=== PATIENT | female | born 1970 | race Caucasian/White ===

== ENCOUNTER → 2018-07-03 14:22 | Outpatient (CLI) | payer MEDICAID, SELFPAY ==
--- NOTE | 2018-07-03 14:32 | XR_ITS ---
XR chest 2V HISTORY: ITS.REASON: COUGH ORDERING PHYSICIAN: Jenny Roper PATIENT AGE: 47 years COMPARISON: None FINDINGS: The cardiomediastinal silhouette and pulmonary vascularity are within normal limits. The lungs are clear without infiltrates, suspicious nodules, or pleural effusions. There is calcified granuloma in left midlung. Prominent endplate spurring is present on the left at T7-T8. No acute bony abnormalities. IMPRESSION: No change with no acute finding
== END ==
PROVIDERS: PCP Family Medicine; Visit Provider Nurse Practitioner Family
DX: R05 Cough (principal)
CPT/HCPCS: 71046

== ENCOUNTER → 2018-07-08 14:06 | Outpatient (CLI) | payer MEDICAID, SELFPAY ==
--- NOTE | 2018-07-08 14:10 | XR_ITS ---
EXAM: XR thoracic spine 3V HISTORY: Back pain ITS.REASON: THORACIC DDD Comparison: None FINDINGS: Minimal upper thoracic curvature convex right. Marginal osteophytes are present on the left at T7 and T8. There is degenerative disc disease in the midthoracic spine. No acute fracture or dislocation. No lytic or blastic change. IMPRESSION: Degenerative changes mid thoracic spine, no acute finding
== END ==
PROVIDERS: PCP Nurse Practitioner Family; Visit Provider Nurse Practitioner Family
DX: M51.34 Other intervertebral disc degeneration, thoracic region (principal)
CPT/HCPCS: 72072

== ENCOUNTER → 2018-09-01 12:45 | Outpatient (POV) | payer MEDICAID, SELFPAY ==
[2018-09-01 13:01] VITALS: BP 189/95; PULSE 80; RESP 18; O2SAT 98
--- NOTE | 2018-09-01 13:35 | HMH.PMCON ---
Assessment and Plan (1) Degenerative disk disease Current visit: Yes Status: Chronic Category: Medical (2) Cervical radiculopathy Current visit: No Status: Chronic Category: Medical Code(s): M54.12 - Radiculopathy, cervical region - Assessment and plan all Dx Assessment and Plan for all problems:: We will schedule C5-C6 epidural steroid injection with the patient. She is not on any anticoagulation B. I believe that it would be beneficial. She is continuing her home stretching program. I will follow-up with her after her injection. This note was dictated using voice recognition software and may contain errors or omissions HPI - Data of Consult Consult date: 09/01/18 Requesting Physician: Aggie Whalen APRN Primary Care Provider: Jenny Roper APRN - Consult Narrative Reason for consult: Neck pain History of present illness: Ms. Salmeron is a 47 year old female who presents today for consultation regards to her neck pain. Patient states that sleeping/mopping slept standing for long time increases her pain well resting and sitting upright in a chair decreases her pain. Patient's tried and physical therapy along with anti-inflammatories along with Flexeril and. Patient pain a 5 out of 10. Patient does have an MRI showing degenerative changes. Patient not considered a surgical candidate as time. Patient has not tried injective therapy. Patient has pain radiating into both of her arms and into her fingers. CC: Aggie Whalen APRN [facility] History I have reviewed the patient's past medical history: Yes Medical History: Reports:: Hyperlipidemia, Hypertension Other Surgeries: Yes: Thyroidectomy - *Social History Smoking Status: Current every day smoker Tobacco Type: cigarettes # Packs/Day (cigarettes): 1 Alcohol Intake: never Occupational Status: other Housing: house Household Members: other Travel in the last 8 weeks: None - Psychiatric History Expresses thoughts of harming self/others: None Suicide Plan Description: No Plan *Family Hx:: Unable to obtain Review of Systems - Review of Systems ROS General: no recent weight change, no fever, no sleep disturbances Respiratory: no cough, no shortness of air, no recurring pulmonary infections Cardiovascular/Peripheral Vascular: No chest pain, No palpitations, no edema, no shortness of breath. Gastrointestinal: no incontinence, normal bowel movements reported Genitourinary: no incontinence Musculoskeletal: Neck pain, back pain, arm pain Psychiatric: normal mood/ affect Neurological: [denies weakness in extremities], [denies balance issues] Meds Home Medications Medication Instructions Recorded Confirmed Type Lisinopril [Lisinopril 10mg Tab] 10 mg PO DAILY 12/01/17 12/01/17 History Levothyroxine Sodium 200 mcg PO DAILY 09/01/18 09/01/18 History [Levothyroxine 200mcg (0.2mg) Tab] Simvastatin 20 mg PO DAILY 09/01/18 09/01/18 History Trazodone HCl 50 mg PO DAILY 09/01/18 09/01/18 History buPROPion HCl [Wellbutrin Xl] 150 mg PO DAILY 09/01/18 09/01/18 History Allergies Allergy/AdvReac Type Severity Reaction Status Date / Time No Known Allergies Allergy Unverified 08/13/17 14:29 Objective Vital signs: Pulse Resp BP Pulse Ox 80 18 189/95 H 98 09/01/18 13:01 09/01/18 13:01 09/01/18 13:01 09/01/18 13:01 Narrative: Physical Exam General: Alert and oriented x3, no acute distress, pleasant and cooperative, [on room air] Lungs: Resps E/U, Symmetrical chest expansion, Eyes: PERRL Musculoskeletal: Flexion and extension of cervical spine somewhat guarded secondary to pain, deep tendon reflexes normal, strength in upper and lower extremities [5/5], normal gait noted Neurological: speech clear, bone crusher equal, no gross sensory deficits Opioid Risk Tool - Opioid Risk Tool-Female Family hx alcohol abuse: N Family hx illegal drugs: N Family hx rx drug abuse: N Personal hx alco
--- NOTE | 2018-09-01 13:38 | P.CONS_ITS ---
Assessment and Plan (1) Degenerative disk disease Current visit: Yes Status: Chronic Category: Medical (2) Cervical radiculopathy Current visit: No Status: Chronic Category: Medical Code(s): M54.12 - Radiculopathy, cervical region - Assessment and plan all Dx Assessment and Plan for all problems:: We will schedule C5-C6 epidural steroid injection with the patient. She is not on any anticoagulation B. I believe that it would be beneficial. She is continuing her home stretching program. I will follow-up with her after her injection. This note was dictated using voice recognition software and may contain errors or omissions HPI - Data of Consult Consult date: 09/01/18 Requesting Physician: Aggie Whalen APRN Primary Care Provider: Jenny Roper APRN - Consult Narrative Reason for consult: Neck pain History of present illness: Ms. Salmeron is a 47 year old female who presents today for consultation regards to her neck pain. Patient states that sleeping/mopping slept standing for long time increases her pain well resting and sitting upright in a chair decreases her pain. Patient's tried and physical therapy along with anti-inflammatories along with Flexeril and. Patient pain a 5 out of 10. Patient does have an MRI showing degenerative changes. Patient not considered a surgical candidate as time. Patient has not tried injective therapy. Patient has pain radiating into both of her arms and into her fingers. CC: Aggie Whalen APRN [facility] History I have reviewed the patient's past medical history: Yes Medical History: Reports:: Hyperlipidemia, Hypertension Other Surgeries: Yes: Thyroidectomy - *Social History Smoking Status: Current every day smoker Tobacco Type: cigarettes # Packs/Day (cigarettes): 1 Alcohol Intake: never Occupational Status: other Housing: house Household Members: other Travel in the last 8 weeks: None - Psychiatric History Expresses thoughts of harming self/others: None Suicide Plan Description: No Plan *Family Hx:: Unable to obtain Review of Systems - Review of Systems ROS General: no recent weight change, no fever, no sleep disturbances Respiratory: no cough, no shortness of air, no recurring pulmonary infections Cardiovascular/Peripheral Vascular: No chest pain, No palpitations, no edema, no shortness of breath. Gastrointestinal: no incontinence, normal bowel movements reported Genitourinary: no incontinence Musculoskeletal: Neck pain, back pain, arm pain Psychiatric: normal mood/ affect Neurological: [denies weakness in extremities], [denies balance issues] Meds Home Medications Medication Instructions Recorded Confirmed Type Lisinopril [Lisinopril 10mg Tab] 10 mg PO DAILY 12/01/17 12/01/17 History Levothyroxine Sodium 200 mcg PO DAILY 09/01/18 09/01/18 History [Levothyroxine 200mcg (0.2mg) Tab] Simvastatin 20 mg PO DAILY 09/01/18 09/01/18 History Trazodone HCl 50 mg PO DAILY 09/01/18 09/01/18 History buPROPion HCl [Wellbutrin Xl] 150 mg PO DAILY 09/01/18 09/01/18 History Allergies Allergy/AdvReac Type Severity Reaction Status Date / Time No Known Allergies Allergy Unverified 08/13/17 14:29 Objective Vital signs: Pulse Resp BP Pulse Ox 80 18 189/95 H 98
== END ==
PROVIDERS: PCP Nurse Practitioner Family; Visit Provider Clinical Nurse Specialist Family Health
DX: M54.12 Radiculopathy, cervical region (principal)
CPT/HCPCS: 99202

== ENCOUNTER → 2018-09-29 10:45 | Outpatient (POV) | payer MEDICAID, SELFPAY ==
[2018-09-29 11:19] VITALS: BP 187/98; PULSE 80; RESP 18; O2SAT 98; BMI 29.9
--- NOTE | 2018-09-29 12:30 | HMH.PAINSOAP ---
[facility] Pain Management SOAP Note Subjective:: Patient is a pleasant 47-year-old white female who presents today for follow-up after her first cervical epidural steroid injection. She states that it helped up to 80%. Patient would like to move forward with the continuation of the series of 3. She rates her pain today a 4 out of 10. ROS General: no recent weight change, no fever, no sleep disturbances Respiratory: no cough, no shortness of air, no recurring pulmonary infections Cardiovascular/Peripheral Vascular: No chest pain, No palpitations, no edema, no shortness of breath. Gastrointestinal: no incontinence, normal bowel movements reported Genitourinary: no incontinence Musculoskeletal: Neck pain, arm pain Psychiatric: normal mood/ affect Neurological: [denies weakness in extremities], [denies balance issues] Objective:: Physical Exam General: Alert and oriented x3, no acute distress, pleasant and cooperative, [on room air] Lungs: Resps E/U, Symmetrical chest expansion, Eyes: PERRL Musculoskeletal: Flexion and extension of cervical spine somewhat guarded secondary to pain, deep tendon reflexes normal, strength in upper and lower extremities [5/5], normal gait noted Neurological: speech clear, osteopathic resident equal, no gross sensory deficits Assessment:: Degenerative disc disease cervical spinal cervical radiculopathy symptoms Plan:: We will schedule her for C5-C6 cervical epidural given the efficacy of the last one. If were able to we will follow that one up by another one prior to seeing her back in the office. Continuing a home stretching program. She is on anti-inflammatory medication. She is not on any anticoagulation therapy. Dr. Sommers has reviewed this note and agrees with this plan of care. This note was dictated using voice recognition software and may contain errors or omissions
--- NOTE | 2018-09-29 12:33 | P.CONS_ITS ---
[facility] Pain Management SOAP Note Subjective:: Patient is a pleasant 47-year-old white female who presents today for follow-up after her first cervical epidural steroid injection. She states that it helped up to 80%. Patient would like to move forward with the continuation of the series of 3. She rates her pain today a 4 out of 10. ROS General: no recent weight change, no fever, no sleep disturbances Respiratory: no cough, no shortness of air, no recurring pulmonary infections Cardiovascular/Peripheral Vascular: No chest pain, No palpitations, no edema, no shortness of breath. Gastrointestinal: no incontinence, normal bowel movements reported Genitourinary: no incontinence Musculoskeletal: Neck pain, arm pain Psychiatric: normal mood/ affect Neurological: [denies weakness in extremities], [denies balance issues] Objective:: Physical Exam General: Alert and oriented x3, no acute distress, pleasant and cooperative, [on room air] Lungs: Resps E/U, Symmetrical chest expansion, Eyes: PERRL Musculoskeletal: Flexion and extension of cervical spine somewhat guarded secondary to pain, deep tendon reflexes normal, strength in upper and lower extremities [5/5], normal gait noted Neurological: speech clear, network engineering advisor equal, no gross sensory deficits Assessment:: Degenerative disc disease cervical spinal cervical radiculopathy symptoms Plan:: We will schedule her for C5-C6 cervical epidural given the efficacy of the last one. If were able to we will follow that one up by another one prior to seeing her back in the office. Continuing a home stretching program. She is on anti- inflammatory medication. She is not on any anticoagulation therapy. Dr. Sommers has reviewed this note and agrees with this plan of care. This note was dictated using voice recognition software and may contain errors or omissions
== END ==
PROVIDERS: PCP Nurse Practitioner Family; Visit Provider Clinical Nurse Specialist Family Health
DX: M50.10 Cervical disc disorder with radiculopathy, unspecified cervical region (principal)
CPT/HCPCS: 99213

== ENCOUNTER → 2018-11-18 09:35 | Outpatient (POV) | payer MEDICAID, SELFPAY ==
[2018-11-18 09:37] VITALS: BP 185/98; PULSE 82; RESP 18; O2SAT 98; BMI 31.6
--- NOTE | 2018-11-18 09:49 | HMH.PAINSOAP ---
[facility] Pain Management SOAP Note Subjective:: Patient is a pleasant 48-year-old white female who presents today for follow-up after her third cervical epidural steroid injection. Patient states that they did help however she feels like her pain has returned. Patient also having some left SI joint issues after walking. Patient and I had a long discussion about how we are going to move forward. Patient has not tried any gabapentin. We will start her on gabapentin 100 mg at bedtime and see if this is beneficial for her. I will see her back in 1 month and reassess her symptoms at that time. She rates her pain today a 5 out of 10. Mostly in her neck and low back. ROS General: no recent weight change, no fever, no sleep disturbances Respiratory: no cough, no shortness of air, no recurring pulmonary infections Cardiovascular/Peripheral Vascular: No chest pain, No palpitations, no edema, no shortness of breath. Gastrointestinal: no incontinence, normal bowel movements reported Genitourinary: no incontinence Musculoskeletal: Neck pain, back pain Psychiatric: normal mood/ affect, Neurological: [denies weakness in extremities], [denies balance issues] Objective:: Physical Exam General: Alert and oriented x3, no acute distress, pleasant and cooperative, [on room air] Lungs: Resps E/U, Symmetrical chest expansion, Eyes: PERRL Musculoskeletal: Flexion and extension of cervical and lumbar spine somewhat guarded secondary to pain, deep tendon reflexes normal, strength in upper and lower extremities [5/5], slightly antalgic gait noted Neurological: speech clear, shellfish shucker equal, no gross sensory deficits Assessment:: Degenerative disc disease cervical spinal cervical radiculopathy symptoms, left SI joint pain, low back pain Plan:: We will start the patient on gabapentin 100 mg 1 p.o. nightly we will see the patient back in 1 month and reassess her symptoms at that time. Patient's been instructed to call the office if she has any issues or side effects to the medication. Dr. Sommers has reviewed this note and agrees with this plan of care. This note was dictated using voice recognition software and may contain errors or omissions
== END ==
PROVIDERS: PCP Nurse Practitioner; Visit Provider Clinical Nurse Specialist Family Health
DX: M50.10 Cervical disc disorder with radiculopathy, unspecified cervical region (principal); M53.3 Sacrococcygeal disorders, not elsewhere classified; M54.5 Low back pain
CPT/HCPCS: 99213

== ENCOUNTER → 2018-12-22 10:52 | Outpatient (POV) | payer MEDICAID, SELFPAY ==
[2018-12-22 11:04] VITALS: BP 137/89; PULSE 78; RESP 18; O2SAT 98; BMI 30.9
--- NOTE | 2018-12-22 11:19 | P.CONS_ITS ---
[facility] Pain Management SOAP Note Subjective:: Patient is a pleasant 48-year-old white female who presents today for follow-up. Patient has been taking her gabapentin 100 mg at bedtime and she states that she is not having any side effects. We will increase this. Patient is trying to be more active she is continuing to walk she is finding it difficult to stand up straight and finds herself leaning forward to get relief. Patient and I discussed spinal stenosis and potential treatments. I gave her information in regards to this. She rates her pain a 3 out of 10. ROS General: no recent weight change, no fever, no sleep disturbances Respiratory: no cough, no shortness of air, no recurring pulmonary infections Cardiovascular/Peripheral Vascular: No chest pain, No palpitations, no edema, no shortness of breath. Gastrointestinal: no incontinence, normal bowel movements reported Genitourinary: no incontinence Musculoskeletal: Back pain, leg pain Psychiatric: normal mood/ affect Neurological: [denies weakness in extremities], [denies balance issues] Objective:: Physical Exam General: Alert and oriented x3, no acute distress, pleasant and cooperative, [on room air] Lungs: Resps E/U, Symmetrical chest expansion, Eyes: PERRL Musculoskeletal: Flexion and extension of lumbar spine somewhat guarded secondary to pain, deep tendon reflexes normal, strength in upper and lower extremities [5/5], slightly antalgic gait noted Neurological: speech clear, process development engineer equal, no gross sensory deficits Assessment:: 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 Degenerative disc disease cervical spine with cervical radiculopathy Plan:: We will increase the patient's gabapentin to 300 mg 1 p.o. 3 times daily. I will see her back in 1 month reassess her symptoms at that time. Also gave her information in regards to the spinal stenosis treatments we offer. Dr. Sommers has reviewed this note and agrees with this plan of care. This note was dictated using voice recognition software and may contain errors or omissions
== END ==
PROVIDERS: PCP Family Medicine; Visit Provider Clinical Nurse Specialist Family Health
DX: M48.062 Spinal stenosis, lumbar region with neurogenic claudication (principal); M50.10 Cervical disc disorder with radiculopathy, unspecified cervical region
CPT/HCPCS: 99212

== ENCOUNTER → 2019-01-23 15:47 | Outpatient (CLI) | payer MEDICAID, SELFPAY ==
[2019-01-23 16:53] LABS: Basophils # 0.1 K/mm3 (0-0.2); Basophils % 0.5 % (0.1-2.0); Eosinophils # 0.1 K/mm3 (0.0-0.4); Eosinophils % 1.2 % (0.1-12.0); Hematocrit 47.6 % (37.0-47.0); Hemoglobin 16.3 g/dL (12.2-16.2); Lymphocytes # 2.6 K/mm3 (0.7-4.5); Mean Corpuscular HGB Conc 34.2 g/dL (31.8-35.4); Mean Corpuscular Volume 96.3 fl (81-99); Mean Platelet Volume 7.2 fl (7.4-10.4); Monocytes # 0.5 K/mm3 (0.1-1.0); Monocytes % 5.1 % (1.7-9.3); Neutrophils % 68.2 % (37.0-80.0); Platelet Count 360 K/mm3 (142-424); Red Blood Count 4.94 M/mm3 (4.20-5.40); Red Cell Distribution Width 13.7 % (11.5-17.5); White Blood Count 10.3 K/mm3 (4.8-10.8)
[2019-01-23 17:43] LABS: Troponin I < 0.02 ng/ml (0.00-0.06)
[2019-01-23 17:49] LABS: Alanine Aminotransferase 43 U/L (12-78); Albumin/Globulin Ratio 1.1 (1.1-1.8); Alkaline Phosphatase 88 U/L (46-116); Anion Gap 12.9 mEq/L (5-15); Aspartate Amino Transferase 22 U/L (15-37); Bilirubin,Total 0.2 mg/dL (0.2-1.0); Blood Urea Nitrogen 23 mg/dL (7-18); Calcium 9.6 mg/dL (8.5-10.1); Carbon Dioxide 27 mmol/L (21.0-32.0); Chloride 102 mmol/L (98-107); Creatinine,Serum 0.79 mg/dL (0.55-1.02); Estimated Glomerular Filt Rate 77 ml/min (>60); GFR (African American) 94 ML/MIN (>60); Globulin 3.6 gm/dl (1.3-3.2); Glucose 86 mg/dL (74-106); Potassium 3.9 mmoL/L (3.5-5.1); Sodium 138 mmol/L (136-145); Thyroid Stimulating Hormone 0.36 uIU/ml (0.358-3.740); Total Protein,Serum 7.6 gm/dL (6.4-8.2)
[2019-01-23 17:50] LABS: C-Reactive Protein < 0.2 mg/L (0.0-0.9)
[2019-01-25 17:08] LABS: Myoglobin 51 ng/mL (25-58)
== END ==
PROVIDERS: Visit Provider Nurse Practitioner Family
DX: I10 Essential (primary) hypertension (principal); R00.0 Tachycardia, unspecified; R06.02 Shortness of breath
CPT/HCPCS: 36415; 80053; 83874; 84443; 84484; 85025; 86140

== ENCOUNTER → 2019-02-02 15:33 | Outpatient (POV) | payer MEDICAID, SELFPAY ==
[2019-02-02 16:06] VITALS: BP 188/83; PULSE 95; RESP 18; O2SAT 98; BMI 30.6
--- NOTE | 2019-02-02 16:24 | XR_ITS ---
EXAM: XR lumbar spine 2-3V HISTORY: ITS.REASON: SPINAL STENOSIS, low back pain ORDERING PHYSICIAN: Aggie Whalen APRN PATIENT AGE: 48 years COMPARISON: None FINDINGS: Flexion and extension views of the lumbar spine show no abnormal subluxation in flexion or extension. There is degenerative disc disease at L3-L4 L4-L5 and to a greater degree at L5-S1. There is minimal anterolisthesis of L4 on L5 of approximately 4 mm which does not change in flexion or extension. Facet arthritic changes are present at the lumbosacral junction. IMPRESSION: 1. Degenerative disc disease with facet arthritic change. 2. No abnormal subluxation in flexion or extension 3. Mild fixed anterior subluxation of L4 on L5 of 4 mm
--- NOTE | 2019-02-03 09:05 | HMH.PAINSOAP ---
[facility] Pain Management SOAP Note Subjective:: Patient is a pleasant 48-year-old white female who presents today for follow-up. Patient rates her pain a 10 out of 10. She is having difficulty with standing and walking. Patient has a lot of numbness and neurogenic claudication. Patient's pain is relieved when she leans forward. Patient and I discussed a vertiflex procedure and she is interested in continuing with this. Patient is not on any anticoagulation therapy. She is failed 6 months of conservative therapies including injections, medications, physical therapy. She is continuing a home stretching program. Patient is on anti-inflammatories along with gabapentin with no relief. ROS General: no recent weight change, no fever, no sleep disturbances Respiratory: no cough, no shortness of air, no recurring pulmonary infections Cardiovascular/Peripheral Vascular: No chest pain, No palpitations, no edema, no shortness of breath. Gastrointestinal: no incontinence, normal bowel movements reported Genitourinary: no incontinence Musculoskeletal: Back pain, leg pain Psychiatric: normal mood/ affect Neurological: Weakness in bilateral lower extremities when walking standing, [denies balance issues] Objective:: Physical Exam General: Alert and oriented x3, no acute distress, pleasant and cooperative, [on room air] Lungs: Resps E/U, Symmetrical chest expansion, Eyes: PERRL Musculoskeletal: Flexion and extension of lumbar spine somewhat guarded secondary to pain, deep tendon reflexes normal, strength in upper and lower extremities [5/5], [abnormal gait noted] Neurological: speech clear, automobile spring repairer equal, no gross sensory deficits Assessment:: Degenerative disc disease lumbar spine with lumbar radiculopathy along with spinal stenosis and neurogenic claudication Plan:: We will plan to get flexion and extension x-rays for the patient. If she is an appropriate vertiflex candidate we will schedule her for a L3-L4 L4-L5 her to flex procedure. Patient interested in moving forward with this we have exhausted other conservative options. Dr. Sommers has reviewed this note and agrees with this plan of care. This note was dictated using voice recognition software and may contain errors or omissions
--- NOTE | 2019-02-03 09:08 | P.CONS_ITS ---
[facility] Pain Management SOAP Note Subjective:: Patient is a pleasant 48-year-old white female who presents today for follow-up. Patient rates her pain a 10 out of 10. She is having difficulty with standing and walking. Patient has a lot of numbness and neurogenic claudication. Patient's pain is relieved when she leans forward. Patient and I discussed a vertiflex procedure and she is interested in continuing with this. Patient is not on any anticoagulation therapy. She is failed 6 months of conservative therapies including injections, medications, physical therapy. She is continuing a home stretching program. Patient is on anti-inflammatories along with gabapentin with no relief. ROS General: no recent weight change, no fever, no sleep disturbances Respiratory: no cough, no shortness of air, no recurring pulmonary infections Cardiovascular/Peripheral Vascular: No chest pain, No palpitations, no edema, no shortness of breath. Gastrointestinal: no incontinence, normal bowel movements reported Genitourinary: no incontinence Musculoskeletal: Back pain, leg pain Psychiatric: normal mood/ affect Neurological: Weakness in bilateral lower extremities when walking standing, [denies balance issues] Objective:: Physical Exam General: Alert and oriented x3, no acute distress, pleasant and cooperative, [on room air] Lungs: Resps E/U, Symmetrical chest expansion, Eyes: PERRL Musculoskeletal: Flexion and extension of lumbar spine somewhat guarded secondary to pain, deep tendon reflexes normal, strength in upper and lower extremities [5/5], [abnormal gait noted] Neurological: speech clear, flame cutting machine operator helper equal, no gross sensory deficits Assessment:: Degenerative disc disease lumbar spine with lumbar radiculopathy along with spinal stenosis and neurogenic claudication Plan:: We will plan to get flexion and extension x-rays for the patient. If she is an appropriate vertiflex candidate we will schedule her for a L3-L4 L4-L5 her to flex procedure. Patient interested in moving forward with this we have exhausted other conservative options. Dr. Sommers has reviewed this note and agrees with this plan of care. This note was dictated using voice recognition software and may contain errors or omissions
== END ==
PROVIDERS: PCP Nurse Practitioner Family; Visit Provider Clinical Nurse Specialist Family Health
DX: M48.062 Spinal stenosis, lumbar region with neurogenic claudication (principal)
CPT/HCPCS: 72100; 99212

== ENCOUNTER → 2019-03-03 10:14 | Outpatient (CLI) | payer MEDICAID, SELFPAY ==
--- NOTE | 2019-03-03 10:15 | CA_ITS ---
PROCEDURE: 2-D M-mode and color Doppler study INDICATIONS FOR THE TEST: Chest pain COPD Heart Murmur Tobacco SmokingX Palpitations Fatigue Syncope Edema HypertensionXDiabetes Mellitus Rheumatic Fever SOBXDOEXObesityXHyperlipidemia Family History HD Additional History ABN EKG,TACHYCARDIA PATIENT INFORMATION HEIGHT: 68 WEIGHT:184 GENDER: Female B/P:180/96 2-D/M-MODE INTERPRETATION: 2-D MEASUREMENTS OBSERVED VALUES IN CMS Right Ventricular Dimension (RVDd) 2.4 Interventricular Septum (Thickness)(IVsd) 1.0 Left Ventricular Internal Dimensions(LVIDd) 5.4 Left Ventricular Posterior Wall (Thickness)(LVPWd) 1.0 Aortic Root 3.3 Aortic Cusp Separation 1.5 Left Atrial Dimensions (LAD) 2.3 2D 1. Left atrium is mildly enlarged, left ventricle is normal size, mild concentric left ventricular hypertrophy, visually estimated ejection fraction 55% with no regional wall motion abnormality. 2. The right atrium and right ventricle are mildly enlarged normal contractility. 3. The aortic valve is minimally thickened and fibrosed. 4. The mitral and tricuspid valve leaflets are minimally thickened. 5. The pulmonic valve is poorly visualized. 6. No significant pericardial effusion noted. DOPPLER INTERROGATION: Doppler interrogation of the aortic, mitral and tricuspid valvular presence of mild mitral and tricuspid regurgitation, tricuspid regurgitation jet velocity is inadequate for calculation of the right ventricular systolic pressure, grade 1 diastolic dysfunction seen with tissue Doppler evidence of raised left atrial pressure. Inferior vena cava is not well visualized. CONCLUSION: 1. Mildly enlarged left atrium, normal left ventricular size, mild concentric left ventricular hypertrophy, visually estimated ejection fraction 55% with no regional wall motion abnormality, grade 1 diastolic dysfunction seen with tissue Doppler evidence of raised left atrial pressure. 2. Mild mitral and tricuspid regurgitation 3. No significant pericardial effusion noted.
--- NOTE | 2019-03-03 11:23 | XR_ITS ---
XR chest 2V HISTORY: Shortness of breath ITS.REASON: chest x ray ORDERING PHYSICIAN: SEDRICK Stock PATIENT AGE: 48 years COMPARISON: 07/03/2018 FINDINGS: The cardiomediastinal silhouette and pulmonary vascularity are within normal limits. The lungs are clear without infiltrates, suspicious nodules, or pleural effusions. Calcified granuloma is present in the left mid and lower lung zone No acute bony abnormalities. IMPRESSION: No change with no acute finding
== END ==
PROVIDERS: PCP Nurse Practitioner Family; Visit Provider Physician Assistant
DX: R06.09 Other forms of dyspnea (principal); R94.31 Abnormal electrocardiogram [ECG] [EKG]; I10 Essential (primary) hypertension; K21.9 Gastro-esophageal reflux disease without esophagitis; G47.9 Sleep disorder, unspecified; R06.00 Dyspnea, unspecified; R06.83 Snoring; R40.0 Somnolence; F17.200 Nicotine dependence, unspecified, uncomplicated
CPT/HCPCS: 71046; 93017; 93306

== ENCOUNTER → 2019-03-20 09:38 | Outpatient (CLI) | payer MEDICAID, SELFPAY | PROVIDERS: PCP Nurse Practitioner Family; Visit Provider Internal Medicine Cardiovascular Disease | DX: R06.83 Snoring; R40.0 Somnolence; G47.33 Obstructive sleep apnea (adult) (pediatric) | CPT/HCPCS: 95806 ==

== ENCOUNTER → 2019-03-30 13:13 | Outpatient (POV) | payer MEDICAID, SELFPAY ==
[2019-03-30 14:12] VITALS: BP 180/98; PULSE 84; RESP 18; O2SAT 99; BMI 29.1
--- NOTE | 2019-04-06 13:08 | HMH.PAINSOAP ---
[facility] Pain Management SOAP Note Subjective:: Patient is a pleasant 48-year-old white female who presents today for follow-up after vertical flex procedure. Patient rates her pain a 4 out of 10. Patient overall doing extremely well. She states that it gets better and better every day. We discussed some realistic expectations. Patient's pain score is to be a 10 out of 10 we have decreased it by over half. She states she is able to stand and walk for longer periods of time. Sutures were removed and her area looks clean dry intact no sign symptoms of infection. ROS General: no recent weight change, no fever, no sleep disturbances Respiratory: no cough, no shortness of air, no recurring pulmonary infections Cardiovascular/Peripheral Vascular: No chest pain, No palpitations, no edema, no shortness of breath. Gastrointestinal: no incontinence, normal bowel movements reported Genitourinary: no incontinence Musculoskeletal: Back pain, leg pain Psychiatric: normal mood/ affect Neurological: [denies weakness in extremities], [denies balance issues] Objective:: Physical Exam General: Alert and oriented x3, no acute distress, pleasant and cooperative, [on room air] Lungs: Resps E/U, Symmetrical chest expansion, Eyes: PERRL Musculoskeletal: Flexion and extension of lumbar spine somewhat guarded secondary to pain, deep tendon reflexes normal, strength in upper and lower extremities [5/5], antalgic gait noted Neurological: speech clear, nurses' association executive director equal, no gross sensory deficits Assessment:: 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 Plan:: We will follow-up with the patient 1 month reassess her symptoms at that time overall she is doing well she is been instructed to call the office if she has any issues prior to her next appointment. Dr. Sommers has reviewed this note and agrees with this plan of care. This note was dictated using voice recognition software and may contain errors or omissions Pain Management Hx Components *Have you ever received a pneumonia vaccine?: Yes *Have you received a flu vaccine this season?: Yes - *Social History *Occupational Status:: other *Travel in the last 8 weeks: None
== END ==
PROVIDERS: PCP Nurse Practitioner Family; Visit Provider Clinical Nurse Specialist Family Health
DX: M51.36 Other intervertebral disc degeneration, lumbar region (principal); M48.062 Spinal stenosis, lumbar region with neurogenic claudication
CPT/HCPCS: 99212

== ENCOUNTER → 2019-04-28 10:53 | Outpatient (POV) | payer MEDICAID, SELFPAY ==
[2019-04-28 11:56] VITALS: BP 172/98; PULSE 73; RESP 18; O2SAT 98; BMI 32.5
--- NOTE | 2019-04-28 12:41 | P.CONS_ITS ---
[facility] Pain Management SOAP Note Subjective:: She is a pleasant 48-year-old white female who presents today for follow-up. Patient had avert a flex procedure and is doing extremely well she states she is able to walk and stand for much longer periods of time. She rates the pain a 4 out of 10 today however mostly in her neck she has difficulty with rotation. Patient has not tried any medications for this. We will try some anti- inflammatories and some muscle relaxers for a month and see if this is beneficial if it is not we will get an updated MRI. ROS General: no recent weight change, no fever, no sleep disturbances Respiratory: no cough, no shortness of air, no recurring pulmonary infections Cardiovascular/Peripheral Vascular: No chest pain, No palpitations, no edema, no shortness of breath. Gastrointestinal: no incontinence, normal bowel movements reported Genitourinary: no incontinence Musculoskeletal: Neck pain Psychiatric: normal mood/ affect, [denies depression], [denies anxiety] Neurological: [denies weakness in extremities], [denies balance issues] Objective:: Physical Exam General: Alert and oriented x3, no acute distress, pleasant and cooperative, [on room air] Lungs: Resps E/U, Symmetrical chest expansion, Eyes: PERRL Musculoskeletal: Flexion and extension of cervical spine somewhat guarded secondary to pain, deep tendon reflexes normal, strength in upper and lower extremities [5/5], normal gait noted Neurological: speech clear, angiography technologist equal, no gross sensory deficits Assessment:: Spinal stenosis lumbar spine with neurogenic claudication, neck pain Plan:: We will start her on diclofenac 75 mg 1 p.o. twice daily and Zanaflex 4 mg 1 p.o. twice daily as needed. We will see if this is beneficial for her we will see her back in 1 month reassess her symptoms at that time. If she is not doing any better we will move forward with getting an updated MRI. Dr. Sommers has reviewed this note and agrees with this plan of care. This note was dictated using voice recognition software and may contain errors or omissions Pain Management Hx Components *Have you ever received a pneumonia vaccine?: No *Have you received a flu vaccine this season?: No - *Social History *Occupational Status:: other *Travel in the last 8 weeks: None
== END ==
PROVIDERS: PCP Nurse Practitioner Family; Visit Provider Clinical Nurse Specialist Family Health
DX: M48.062 Spinal stenosis, lumbar region with neurogenic claudication (principal)
CPT/HCPCS: 99212

== ENCOUNTER → 2019-06-18 10:44 | Outpatient (POV) | payer OTHER, SELFPAY ==
[2019-06-18 10:53] VITALS: BP 175/89; PULSE 88; RESP 18; O2SAT 98; BMI 31.6
--- NOTE | 2019-06-18 13:26 | HMH.PAINSOAP ---
[facility] Pain Management SOAP Note Subjective:: Patient is a pleasant 48-year-old white female who presents today for follow-up. Patient has undergone a superion vertiflex procedure. Patient says she was doing extremely well following her procedure, however, she is now complaining of right low back pain with radiation into her right hip and right leg. Patient says the pain stops above her knee. She says this pain is new onset and is worse when she walks and with standing. The patient says the pain is relieved when she sits She rates her pain a 6 out of 10 today. Patient is trying anti-inflammatories and a home stretching program. She is also been taking Zanaflex for neck and shoulder pain. Patient does say her neck and shoulder pain have gotten better since her previous visit, but the pain to her low back is worse today. Review of Systems General: No recent weight changes, no fever, no sleep disturbances Respiratory: No cough, no shortness of air, no recurring pulmonary infections Cardiovascular/peripheral vascular: No chest pain, no palpitations, no edema, no shortness of breath Gastrointestinal: No new onset incontinence, normal bowel movements reported Genitourinary: No new onset incontinence Musculoskeletal: Back pain, right leg pain Psychiatric: Normal mood/affect Neurological: [Denies weakness in extremities], [denies balance issues] Objective:: Physical exam General: Alert and oriented x3, no acute distress, pleasant and cooperative, [on room air] Lungs: Respirations even and unlabored, symmetrical chest expansion Eyes: PERRL Musculoskeletal: Flexion and extension of lumbar spine somewhat guarded secondary to pain, deep tendon reflexes normal, strength in upper and lower extremities [5/5], slightly antalgic gait noted, positive Lisa test, positive distraction test, positive compression test Neurological: Speech clear, assistive technology specialist equal, no gross sensory deficit Assessment:: Sacroiliitis, spinal stenosis lumbar spine with neurogenic claudication, neck pain Plan:: Patient does have notable point tenderness over her right SI joint. She does have a positive Lisa test, positive compression test, positive distraction test. I think given her symptoms she would benefit from a right SI joint injection. We will schedule patient for the injection. She will continue with anti-inflammatories and home stretching program. We will see her back in the clinic following the injection to reassess her symptoms she has been instructed to contact the clinic if she has any concerns before her next appointment. Dr. Sommers has reviewed this note and agrees with this plan of care. This note was dictated using voice recognition software and make contain errors or omissions. [facility] History I have reviewed the patient's past medical history: Yes Medical History: Reports:: Anxiety, Cancer, Depression, Gastroesophageal Reflux Disease(GERD), Hyperlipidemia, Hypertension Denies:: Diabetes Mellitus Type 1, Diabetes Mellitus Type 2, Internal Pacemaker, MRSA, Seizures *Have you ever received a pneumonia vaccine?: No *Have you received a flu vaccine this season?: No Other Medical History: Reports: Thyroid Disease, Other. Denies: Blood Transfusion Reaction Laterality Cases: Other Surgeries: Yes: Colonoscopy, Hysterectomy-Total, Hysterectomy-Partial, Thyroidectomy. No: Pacemaker Amputation: No Fractures: No - *Social History Smoking Status: Current every day smoker Tobacco Type: cigarettes # Packs/Day (cigarettes): 1 #Yrs smoked (if former smoker): 15 Alcohol Intake: current Alcohol Intake Frequency:: holidays/special occasions only Substance Use Type: denies use *Occupational Status:: other Housing: house Household Members: family, other *Travel in the last 8 weeks: None - Psychiatric History Pschychiatric History:: Reports:: Anxiety, Depression Family Hx:: Cancer, Coronary Artery Disease, Diabetes, Heart Attack, Hypertension, Stroke
--- NOTE | 2019-06-18 13:30 | P.CONS_ITS ---
[facility] Pain Management SOAP Note Subjective:: Patient is a pleasant 48-year-old white female who presents today for follow-up. Patient has undergone a superion vertiflex procedure. Patient says she was doing extremely well following her procedure, however, she is now complaining of right low back pain with radiation into her right hip and right leg. Patient says the pain stops above her knee. She says this pain is new onset and is worse when she walks and with standing. The patient says the pain is relieved when she sits She rates her pain a 6 out of 10 today. Patient is trying anti- inflammatories and a home stretching program. She is also been taking Zanaflex for neck and shoulder pain. Patient does say her neck and shoulder pain have gotten better since her previous visit, but the pain to her low back is worse today. Review of Systems General: No recent weight changes, no fever, no sleep disturbances Respiratory: No cough, no shortness of air, no recurring pulmonary infections Cardiovascular/peripheral vascular: No chest pain, no palpitations, no edema, no shortness of breath Gastrointestinal: No new onset incontinence, normal bowel movements reported Genitourinary: No new onset incontinence Musculoskeletal: Back pain, right leg pain Psychiatric: Normal mood/affect Neurological: [Denies weakness in extremities], [denies balance issues] Objective:: Physical exam General: Alert and oriented x3, no acute distress, pleasant and cooperative, [on room air] Lungs: Respirations even and unlabored, symmetrical chest expansion Eyes: PERRL Musculoskeletal: Flexion and extension of lumbar spine somewhat guarded secondary to pain, deep tendon reflexes normal, strength in upper and lower extremities [5/5], slightly antalgic gait noted, positive Lisa test, positive distraction test, positive compression test Neurological: Speech clear, health and social care teacher equal, no gross sensory deficit Assessment:: Sacroiliitis, spinal stenosis lumbar spine with neurogenic claudication, neck pain Plan:: Patient does have notable point tenderness over her right SI joint. She does have a positive Lisa test, positive compression test, positive distraction test. I think given her symptoms she would benefit from a right SI joint injection. We will schedule patient for the injection. She will continue with anti-inflammatories and home stretching program. We will see her back in the clinic following the injection to reassess her symptoms she has been instructed to contact the clinic if she has any concerns before her next appointment. Dr. Sommers has reviewed this note and agrees with this plan of care. This note was dictated using voice recognition software and make contain errors or omissions. [facility] History I have reviewed the patient's past medical history: Yes Medical History: Reports:: Anxiety, Cancer, Depression, Gastroesophageal Reflux Disease(GERD), Hyperlipidemia, Hypertension Denies:: Diabetes Mellitus Type 1, Diabetes Mellitus Type 2, Internal Pacemaker, MRSA, Seizures *Have you ever received a pneumonia vaccine?: No *Have you received a flu vaccine this season?: No Other Medical History: Reports: Thyroid Disease, Other. Denies: Blood Transfusion Reaction Laterality Cases: Other Surgeries: Yes: Colonoscopy, Hysterectomy-Total, Hysterectomy-Partial, Thyroidectomy. No: Pacemaker Amputation: No Fractures: No - *Social History Smoking Status: Current every day smoker Tobacco Type: cigarettes # Packs/Day (cigarettes): 1 #Yrs smoked (if former smoker): 15 Alcohol Intake: current Alcohol Intake Frequency:: holidays/
== END ==
PROVIDERS: PCP Family Medicine; Visit Provider Clinical Nurse Specialist Family Health
DX: M46.1 Sacroiliitis, not elsewhere classified (principal); M48.062 Spinal stenosis, lumbar region with neurogenic claudication; M54.2 Cervicalgia
CPT/HCPCS: 99212

== ENCOUNTER → 2019-06-25 12:50 | Outpatient (CLI) | payer OTHER, SELFPAY ==
--- NOTE | 2019-06-25 12:55 | MR_ITS ---
PROCEDURE: MR CERVICAL SPINE WO CON CLINICAL INDICATION: BACK PAIN Worsening neck pain COMPARISON: [facility] CT CERVICAL SPINE W/O CONT from 06/26/2013 TECHNIQUE: Standard multiplanar multiecho sequences are performed without contrast. 3-D MIP and myelographic images are also rendered and reviewed FINDINGS: There is straightening of the cervical lordosis which could be due to patient positioning or muscle spasm. The craniocervical junction has an unremarkable appearance. C2-C3: Mild foraminal narrowing on the right from facet hypertrophic change. C3-C4: Mild bilateral foraminal narrowing from facet hypertrophy. C4-C5: Mild degenerative disc disease. C5-C6: There is degenerative disc disease with bulging disc and a small central/left paracentral disc protrusion. This is impinging upon the central left aspect of the cord with canal stenosis of 8 mm also causing left lateral recess narrowing. There is bilateral foraminal narrowing from facet hypertrophic change. C6-C7: Mild bulging disc with mild prominence of the posterior longitudinal ligament. C7-T1: Unremarkable. IMPRESSION: 1. There is degenerative disc disease at C5-C6 with bulging disc and a small central/left paracentral disc protrusion. This is impinging upon the central left aspect of the cord with canal stenosis of 8 mm also causing left lateral recess narrowing. There is bilateral foraminal narrowing from facet hypertrophic change. 2. Mild cervical spondylosis with degenerative disc disease and foraminal narrowing. Please see above for detailed description at each level. There is straightening of the cervical lordosis Dictated by: Mario Geronimo MD 06/26/2019 11:27 Electronically signed by Mario Geronimo MD in [place] 06/26/2019 11:27
--- NOTE | 2019-06-25 12:55 | MR_ITS ---
PROCEDURE: MR THORACIC SPINE WO CON CLINICAL INDICATION: BACK PAIN Mid back pain. Worsening mid back pain COMPARISON: [facility] CT CHEST W/O CONTRAST from 06/04/2016 [id number] XR thoracic spine 3V from 07/08/2018 TECHNIQUE: Routine multiplanar multi echo sequences are performed without gadolinium enhancement. FINDINGS: There is normal alignment. No obvious fracture or dislocation is evident. T1-T2: There is a broad based right foraminal disc protrusion/disc osteophyte complex causing right-sided foraminal narrowing. Sagittal images suggest a bulging disc at T2-T3. This however is not confirmed on the axial sequences and could be due to artifact on the sagittal images. Mid there is mild multilevel degenerative disc disease at T5-T6 T6-T7 and T8-T9. At T8-T9 there is a large central disc osteophyte complex which projects posteriorly causing compression upon the central and right aspect of the cord. The cord is displaced toward the left. This was present on a previous CT scan of 06/04/2016. This osteophyte projects posteriorly into the canal by approximately 12 mm causing canal stenosis. IMPRESSION: 1. Abnormal MRI of the thoracic spine. There a large central disc osteophyte complex at T8-T9 which projects posteriorly causing compression upon the central and right aspect of the cord. The cord is displaced toward the left. This was present on a previous CT scan of 06/04/2016. This osteophyte projects posteriorly into the canal by approximately 12 mm causing canal stenosis 2. There is a small broad based right foraminal disc protrusion/disc osteophyte complex causing right-sided foraminal narrowing at T1-T2 3. Thoracic spondylosis. Please see above for detailed description Dictated by: Mario Geronimo MD 06/26/2019 11:45 Electronically signed by Mario Geronimo MD in [place] 06/26/2019 11:45
== END ==
PROVIDERS: PCP Nurse Practitioner Family; Visit Provider Clinical Nurse Specialist Family Health
DX: M54.2 Cervicalgia (principal); M54.6 Pain in thoracic spine
CPT/HCPCS: 72141; 72146; 76376

== ENCOUNTER → 2019-07-06 09:43 | Outpatient (POV) | payer OTHER, SELFPAY ==
[2019-07-06 10:28] VITALS: BP 168/78; O2SAT 98; BMI 31.6
--- NOTE | 2019-07-06 13:07 | HMH.PAINSOAP ---
[facility] Pain Management SOAP Note Subjective:: Patient is a pleasant 48-year-old white female who presents today for follow-up after cervical and thoracic MRI. Patient does have some nerve impingement secondary to an osteophyte complex and a bulging disc. Patient has quite a bit of SI joint pain. Patient is uninterested in injections. Patient and I discussed an SI belt along with anti-inflammatories. Patient and I discussed a surgical consultation in regards to her thoracic and cervical spine. We will send her to Dr. Arias to look over this. Patient and I also briefly talked about the percutaneous SI joint fusion. Patient has tried and failed anti-inflammatories. She states that muscle relaxers and gabapentin do not work for her. She is not interested in injective therapy. At this point a surgical consult will be the next available thing that we can offer her. ROS General: no recent weight change, no fever, no sleep disturbances Respiratory: no cough, no shortness of air, no recurring pulmonary infections Cardiovascular/Peripheral Vascular: No chest pain, No palpitations, no edema, no shortness of breath. Gastrointestinal: no new onset incontinence, normal bowel movements reported Genitourinary: no new onset incontinence Musculoskeletal: Neck pain, back pain, SI joint pain Psychiatric: normal mood/ affect Neurological: [denies new onset weakness in extremities], [denies new onset balance issues] Objective:: Physical Exam General: Alert and oriented x3, no acute distress, pleasant and cooperative, [on room air] Lungs: Resps E/U, Symmetrical chest expansion, Eyes: PERRL Musculoskeletal: Flexion and extension of lumbar spine somewhat guarded secondary to pain, deep tendon reflexes normal, strength in upper and lower extremities [5/5], [abnormal gait noted] Neurological: speech clear, binding printer equal, no gross sensory deficits Assessment:: Degenerative disc disease lumbar spine with lumbar radiculopathy, thoracic degenerative disc disease, cervical degenerative disc disease, SI joint pain on the right side Plan:: Also the patient to Dr. John Arisa for consultation in regards to her of cervical and thoracic spine. I will follow-up with her afterwards to reassess her symptoms at that time she is been instructed to call the office if she has any issues prior to her next appointment. Dr. Sommers has reviewed this note and agrees with this plan of care. This note was dictated using voice recognition software and may contain errors or omissions [facility] History I have reviewed the patient's past medical history: Yes Medical History: Reports:: Anxiety, Cancer, Depression, Gastroesophageal Reflux Disease(GERD), Hyperlipidemia, Hypertension Denies:: Diabetes Mellitus Type 1, Diabetes Mellitus Type 2, Internal Pacemaker, MRSA, Seizures *Have you ever received a pneumonia vaccine?: No *Have you received a flu vaccine this season?: No Other Medical History: Reports: Thyroid Disease, Other. Denies: Blood Transfusion Reaction Laterality Cases: Other Surgeries: Yes: Colonoscopy, Hysterectomy-Total, Hysterectomy-Partial, Thyroidectomy. No: Pacemaker Amputation: No Fractures: No - *Social History Smoking Status: Current every day smoker Tobacco Type: cigarettes # Packs/Day (cigarettes): 1 #Yrs smoked (if former smoker): 15 Alcohol Intake: current Alcohol Intake Frequency:: holidays/special occasions only Substance Use Type: denies use *Occupational Status:: other Housing: house Household Members: family, other *Travel in the last 8 weeks: None - Psychiatric History Pschychiatric History:: Reports:: Anxiety, Depression Family Hx:: Cancer, Coronary Artery Disease, Diabetes, Heart Attack, Hypertension, Stroke
--- NOTE | 2019-07-06 13:11 | P.CONS_ITS ---
[facility] Pain Management SOAP Note Subjective:: Patient is a pleasant 48-year-old white female who presents today for follow-up after cervical and thoracic MRI. Patient does have some nerve impingement secondary to an osteophyte complex and a bulging disc. Patient has quite a bit of SI joint pain. Patient is uninterested in injections. Patient and I discussed an SI belt along with anti-inflammatories. Patient and I discussed a surgical consultation in regards to her thoracic and cervical spine. We will send her to Dr. Arias to look over this. Patient and I also briefly talked about the percutaneous SI joint fusion. Patient has tried and failed anti- inflammatories. She states that muscle relaxers and gabapentin do not work for her. She is not interested in injective therapy. At this point a surgical consult will be the next available thing that we can offer her. ROS General: no recent weight change, no fever, no sleep disturbances Respiratory: no cough, no shortness of air, no recurring pulmonary infections Cardiovascular/Peripheral Vascular: No chest pain, No palpitations, no edema, no shortness of breath. Gastrointestinal: no new onset incontinence, normal bowel movements reported Genitourinary: no new onset incontinence Musculoskeletal: Neck pain, back pain, SI joint pain Psychiatric: normal mood/ affect Neurological: [denies new onset weakness in extremities], [denies new onset balance issues] Objective:: Physical Exam General: Alert and oriented x3, no acute distress, pleasant and cooperative, [on room air] Lungs: Resps E/U, Symmetrical chest expansion, Eyes: PERRL Musculoskeletal: Flexion and extension of lumbar spine somewhat guarded secondary to pain, deep tendon reflexes normal, strength in upper and lower extremities [5/5], [abnormal gait noted] Neurological: speech clear, job placement specialist equal, no gross sensory deficits Assessment:: Degenerative disc disease lumbar spine with lumbar radiculopathy, thoracic degenerative disc disease, cervical degenerative disc disease, SI joint pain on the right side Plan:: Also the patient to Dr. John Arias for consultation in regards to her of cervical and thoracic spine. I will follow-up with her afterwards to reassess her symptoms at that time she is been instructed to call the office if she has any issues prior to her next appointment. Dr. Sommers has reviewed this note and agrees with this plan of care. This note was dictated using voice recognition software and may contain errors or omissions [facility] History I have reviewed the patient's past medical history: Yes Medical History: Reports:: Anxiety, Cancer, Depression, Gastroesophageal Reflux Disease(GERD), Hyperlipidemia, Hypertension Denies:: Diabetes Mellitus Type 1, Diabetes Mellitus Type 2, Internal Pacemaker, MRSA, Seizures *Have you ever received a pneumonia vaccine?: No *Have you received a flu vaccine this season?: No Other Medical History: Reports: Thyroid Disease, Other. Denies: Blood Transfusion Reaction Laterality Cases: Other Surgeries: Yes: Colonoscopy, Hysterectomy-Total, Hysterectomy-Partial, Thyroidectomy. No: Pacemaker Amputation: No Fractures: No - *Social History Smoking Status: Current every day smoker Tobacco Type: cigarettes # Packs/Day (cigarettes): 1 #Yrs smoked (if former smoker): 15 Alcohol Intake: current Alcohol Intake Frequency:: holidays/special occasions only Substance Use Type: denies use *Occupational Status:: other Housing: house Household Members: family, other *Travel in the last 8 weeks: None - Psychiatric Hi
== END ==
PROVIDERS: PCP Family Medicine; Visit Provider Clinical Nurse Specialist Family Health
DX: M51.16 Intervertebral disc disorders with radiculopathy, lumbar region (principal); M50.30 Other cervical disc degeneration, unspecified cervical region; M51.34 Other intervertebral disc degeneration, thoracic region
CPT/HCPCS: 99212

== ENCOUNTER → 2019-09-17 19:47 | Outpatient (CLI) | payer MEDICARE, OTHER, SELFPAY | PROVIDERS: PCP Family Medicine; Visit Provider Nurse Practitioner Family | DX: G47.33 Obstructive sleep apnea (adult) (pediatric) (principal); G47.31 Primary central sleep apnea | CPT/HCPCS: 95811 ==

== ENCOUNTER → 2020-01-07 11:20 | Outpatient (CLI) | payer MEDICARE, OTHER, SELFPAY ==
--- NOTE | 2020-01-07 11:32 | XR_ITS ---
PROCEDURE: XR SHOULDER LT MIN 2V CLINICAL INDICATION: LT SHOULDER PAIN COMPARISON: [id number] VIEWS from 06/04/2016 FINDINGS: Are hypertrophic changes of the AC joint superiorly and there are mild osteoarthritic changes of the glenohumeral joint with spurring along the inferior aspect of the acetabulum. No acute fracture or dislocation. No lytic or blastic change. IMPRESSION: Osteoarthritic changes of the AC joint and glenohumeral joint Dictated by: Mario Geronimo MD 01/07/2020 11:45 Electronically signed by Mario Geronimo MD in [place] 01/07/2020 11:45
== END ==
PROVIDERS: PCP Nurse Practitioner Family; Visit Provider Nurse Practitioner Family
DX: M25.512 Pain in left shoulder (principal)
CPT/HCPCS: 73030

== ENCOUNTER → 2021-02-16 15:47 | Outpatient (CLI) | payer MEDICARE, SELFPAY ==
[2021-02-16 16:28] LABS: Basophils # 0.1 K/mm3 (0-0.2); Basophils % 0.8 % (0.1-2.0); Eosinophils # 0.1 K/mm3 (0.0-0.4); Eosinophils % 1.2 % (0.1-12.0); Hematocrit 49.6 % (37.0-47.0); Hemoglobin 16.6 g/dL (12.2-16.2); Lymphocytes # 2.9 K/mm3 (0.7-4.5); Lymphocytes % 28.3 % (10-50); Mean Corpuscular HGB Conc 33.4 g/dL (31.8-35.4); Mean Corpuscular Hemoglobin 31.5 pg (27.0-31.2); Mean Corpuscular Volume 94.4 fl (81-99); Mean Platelet Volume 7.8 fl (7.4-10.4); Monocytes # 0.5 K/mm3 (0.1-1.0); Monocytes % 5.3 % (1.7-9.3); Neutrophils # 6.5 K/mm3 (1.8-7.8); Neutrophils % 64.4 % (37.0-80.0); Platelet Count 320 K/mm3 (142-424); Red Blood Count 5.26 M/mm3 (4.20-5.40); Red Cell Distribution Width 14.6 % (11.5-17.5); White Blood Count 10.1 K/mm3 (4.8-10.8)
[2021-02-16 17:14] LABS: Free T4 (Free Thyroxine) 2.68 ng/dl (0.78-2.19)
[2021-02-16 17:31] LABS: Alanine Aminotransferase 35 U/L (12-78); Albumin Level 4.6 g/dl (3.5-5.0); Albumin/Globulin Ratio 1.5 (1.1-1.8); Alkaline Phosphatase 102 U/L (38-126); Anion Gap 15.6 mEq/L (5-15); Aspartate Amino Transferase 30 U/L (14-36); Bilirubin,Total 0.7 mg/dl (0.2-1.3); Blood Urea Nitrogen 13 mg/dl (7-17); Calcium 9.7 mg/dl (8.4-10.2); Carbon Dioxide 23 mmol/L (22.0-30.0); Chloride 103 mmol/L (98-107); Chol/HDL Ratio 5.9 (1-3.5); Cholesterol 267 mg/dl (140-200); Estimated Glomerular Filt Rate 88 ml/min (>60); GFR (African American) 107 ML/MIN (>60); Globulin 3.1 g/dL (1.3-3.2); Glucose 89 mg/dl (74-100); HDL Cholesterol 45 mg/dl (40-60); Potassium 4.6 mmoL/L (3.5-5.1); Sodium 137 mmol/L (136-145); Total Protein,Serum 7.7 g/dl (6.3-8.2); Triglycerides 137 mg/dl (30-150); VLDL Cholesterol 27 mg/dL (0-40)
[2021-02-16 17:42] LABS: Direct LDL Cholesterol 195.09 mg/dL (100-129)
[2021-02-16 18:02] LABS: Thyroid Stimulating Hormone < 0.02 uIU/mL (0.465-4.68)
== END ==
PROVIDERS: Visit Provider Nurse Practitioner Family
DX: Z00.00 Encounter for general adult medical examination without abnormal findings (principal); E03.9 Hypothyroidism, unspecified
CPT/HCPCS: 36415; 80053; 80061; 84439; 84443; 85025

== ENCOUNTER → 2021-03-27 14:44 | Outpatient (CLI) | payer MEDICARE, MEDICAID, SELFPAY ==
[2021-03-27 15:12] LABS: Coronavirus 19, PCR Not Detected (NotDetected); Influenza A, PCR Not Detected (NotDetected); Influenza B, PCR Not Detected (NotDetected)
== END ==
PROVIDERS: PCP Nurse Practitioner Family; Visit Provider Nurse Practitioner Family
DX: Z11.52 Encounter for screening for COVID-19 (principal); R05 Cough
CPT/HCPCS: U0003

== ENCOUNTER → 2021-06-05 15:11 | Outpatient (CLI) | payer MEDICARE, MEDICAID, SELFPAY ==
[2021-06-05 16:18] LABS: Albumin Level 4.3 g/dl (3.5-5.0); Albumin/Globulin Ratio 1.3 (1.1-1.8); Blood Urea Nitrogen 9 mg/dl (7-17); Calcium 9.6 mg/dl (8.4-10.2); Chloride 105 mmol/L (98-107); Estimated Glomerular Filt Rate 130 ml/min (>60); GFR (African American) 157 ML/MIN (>60); Globulin 3.2 g/dL (1.3-3.2); Glucose 89 mg/dl (74-100); HDL Cholesterol 45 mg/dl (40-60); Potassium 4.4 mmoL/L (3.5-5.1); Sodium 139 mmol/L (136-145); Total Protein,Serum 7.5 g/dl (6.3-8.2)
[2021-06-05 16:21] LABS: Alanine Aminotransferase 36 U/L (12-78); Alkaline Phosphatase 90 U/L (38-126); Anion Gap 11.4 mEq/L (5-15); Aspartate Amino Transferase 35 U/L (14-36); Bilirubin,Total 0.6 mg/dl (0.2-1.3); Carbon Dioxide 27 mmol/L (22.0-30.0); Chol/HDL Ratio 6.4 (1-3.5); Cholesterol 289 mg/dl (140-200); Triglycerides 199 mg/dl (30-150); VLDL Cholesterol 40 mg/dL (0-40)
[2021-06-05 16:29] LABS: Direct LDL Cholesterol 203.56 mg/dL (100-129)
[2021-06-05 16:48] LABS: Thyroid Stimulating Hormone 0.05 uIU/mL (0.465-4.68)
== END ==
PROVIDERS: Visit Provider Nurse Practitioner Family
DX: E78.2 Mixed hyperlipidemia (principal); E03.9 Hypothyroidism, unspecified
CPT/HCPCS: 36415; 80053; 80061; 84443

== ENCOUNTER → 2021-07-02 17:15 | Outpatient (CLI) | payer MEDICARE, MEDICAID, SELFPAY ==
--- NOTE | 2021-07-02 21:35 | INFXCTL.NOTE ---
spoke with patient at her request re: covid status per respiratory panel this date. advised her to contact her pcp for further instructions, as well as she would be receiving contact from either the health dept or infection control here at the hospital for tracing purposes. Her significant other was admitted this date and is currently in ICU 263 with dx: respiratory failure.
== END ==
PROVIDERS: PCP Nurse Practitioner Family; Visit Provider Nurse Practitioner Family
DX: Z20.822 Contact with and (suspected) exposure to COVID-19 (principal); U07.1 COVID-19
CPT/HCPCS: C9803; U0003; U0005

== ENCOUNTER → 2022-01-14 21:27 | Outpatient (CLI) | payer MEDICARE, MEDICAID, SELFPAY ==
[2022-01-14 22:46] LABS: Coronavirus 19, PCR Not Detected (NotDetected); Influenza A, PCR Not Detected (NotDetected); Influenza B, PCR Not Detected (NotDetected)
== END ==
PROVIDERS: PCP Internal Medicine Adolescent Medicine; Visit Provider Emergency Medicine
DX: J06.9 Acute upper respiratory infection, unspecified (principal); Z20.822 Contact with and (suspected) exposure to COVID-19
CPT/HCPCS: C9803; U0003; U0005

== ENCOUNTER 2022-11-05 12:46 | Emergency (ER) | payer MEDICARE, MEDICAID, SELFPAY ==
[2022-11-05 12:50] VITALS: BP 175/96; PULSE 99; RESP 16; TEMP 37.1; O2SAT 97; BMI 38.7
[2022-11-05 13:12] LABS: UTC Strep Screen (Rapid) Negative (Negative)
--- NOTE | 2022-11-05 13:14 | EXP.UTC ---
Discharge Plan Disposition Patient Disposition: Home, Self-Care Condition: Good Prescriptions Prescriptions: New prednisone 10 mg tablet 10 mg PO BID 5 Days Qty: 10 0RF amoxicillin 875 mg tablet 875 mg PO BID 10 Days Qty: 20 0RF No Action cefdinir 300 mg capsule 300 mg PO BID Label Comments: TAKE ONE CAPSULE BY MOUTH TWICE DAILY FOR 10 DAYS -- FINISH ALL MEDICINE -- buspirone 15 mg tablet 15 mg PO BID Qty: 60 1RF diazepam [Valium] 5 mg tablet 5 mg PO HS PRN (Reason: anxiety/ sleep) Qty: 30 0RF lamotrigine 100 mg tablet See Rx Instructions PO DAILY Qty: 45 1RF Rx Instructions: take 1/2 tablet in the am; and 1 whole tablet at bedtime PO DAILY; amlodipine 5 mg tablet 5 mg PO DAILY Qty: 30 5RF hydrochlorothiazide 12.5 mg capsule See Rx Instructions .ROUTE .COMPLEX Qty: 90 0RF Dose Instruction: TAKE ONE CAPSULE BY MOUTH EVERY DAY Rx Instructions: TAKE ONE CAPSULE BY MOUTH EVERY DAY losartan 50 mg tablet See Rx Instructions .ROUTE .COMPLEX Qty: 90 0RF Dose Instruction: TAKE ONE TABLET BY MOUTH EVERY DAY Rx Instructions: TAKE ONE TABLET BY MOUTH EVERY DAY levothyroxine 200 MCG tablet 200 mcg PO DAILY Referrals Follow up/Referrals: Mark Salvador MD [Primary Care Provider] - See instructions Activity Restrictions/Add. Instructions Additional Instructions/Restrictions: *Monitor Temp, Over the counter Motrin or Tylenol as directed/as needed Tylenol every 4 hours and Motrin every 6 hours (as long as your family doctor has told you that you can take it) for fever or pain. and straight to ER if unable to lower temp less than 101.0 after medication given *Warm salt water gargles may help to soothe the throat *Throat Lozenges? *Warm fluids like tea with honey may help to soothe the throat? *Sleep elevated *Humidifier/Vaporizer *Flonase 2 sprays in each nostril daily but be aware that it may take 2-3 days before you notice improvement *Bromfed may cause drowsiness. Know how it effects you (your child) before driving, caring for small child, or sending your child to school. Not other antihistamines/allergy medications while taking bromfed Your throat swab was sent for culture. Those results are typically sent to your primary care. Be sure to follow up in 2-3 days with your family doctor/primary care physician if no improvement so they can review those result and treat if necessary. If you don?t have a primary care doctor, I recommend you get one but in the mean time, you will have to return to a walk in clinic Follow up IMMEDIATELY for new or worsening symptoms or no Noticeable improvement over the next 48-72 hours. 911 for difficulty breathing or swallowing Clinical Impressions Clinical Impression: Otitis media Qualifiers: Otitis media type: unspecified Laterality: bilateral Qualified Code(s): H66.93 - Otitis media, unspecified, bilateral Instructions Patient Instructions: Sore Throat, DI for Ear Pain-Adult Discharge ED Provider: Anais Anglin [facility] HPI General Stated complaint: Ear pain both ears, sore throat Mode of Arrival: Ambulatory Source of Information: Patient Limitations: No Limitations Time Seen by Provider: 11/05/22 13:14 Description of Symptoms (Recalled from Triage Doc. by RN): PATIENT C/O SORE THROAT AND BILATERAL EAR PAIN SINCE SATURDAY HEENT Symptoms (Recalled from RN notes): Yes Resp Symptoms (Recalled from RN notes): No Skin Symptoms (Recalled from RN notes): No MS Symptoms (Recalled from RN notes): No Functional Status (Recalled from RN notes): WNL History of Present Illness Provider Complaint: Patient states that she has been having sore throat and bilateral ear pain that has continued to get worse over the last couple of days States that today her throat felt worse and her ears was hurting worse and felt full Related Data Home Medications Medication Instructions Recorded Co
[2022-11-05 13:35] VITALS: BP 175/96; PULSE 99; RESP 16; TEMP 37.1; O2SAT 97
== END 2022-11-05 13:42 | disposition home or self-care (01) ==
PROVIDERS: Emergency Provider Nurse Practitioner; PCP Internal Medicine Adolescent Medicine
DX: H66.93 Otitis media, unspecified, bilateral (principal); R07.0 Pain in throat; R50.9 Fever, unspecified; F17.210 Nicotine dependence, cigarettes, uncomplicated; I10 Essential (primary) hypertension
CPT/HCPCS: 87880; 99212; 99214; G0463

== ENCOUNTER 2024-02-26 12:48 | Outpatient (CLI) | payer MEDICARE, MEDICAID, SELFPAY ==
--- NOTE | 2024-02-26 12:56 | CT_ITS ---
FINAL REPORT TECHNIQUE: Thin section axial images were obtained from the lung apices to the upper abdomen by computed tomography. Reformatted images were obtained and reviewed. This study was performed with techniques to keep radiation doses al low as reasonably achievable (ALARA). Individualized dose reduction techniques using automated exposure control or adjustment of mA and/or kV according to the patient's size were employed. CLINICAL HISTORY: HISTORY OF TOBACCO USE, 1/2 ppd, 40 years, history of thyroid cx, father and uncle had lung cancer FINDINGS: CHEST CT LOW DOSE CTDI vol (mGy): 2.90 DLP (mGy-cm): 99.77 There is no axillary adenopathy. There is no mediastinal or hilar mass or adenopathy. The heart is normal in size. There is no pericardial or pleural effusion. There is mild emphysema and mild pulmonary scarring. Lung window images demonstrate a calcified granuloma in the left upper lobe. There is a lateral right upper lobe nodule on image 35 measuring 4 mm. There is a 2 mm right upper lobe nodule on image 31. Limited images of the upper abdomen are unremarkable. IMPRESSION: Lung-RADS category 2. Recommend 12 month follow up low dose chest CT. Reviewed, Interpreted and Dictated by Roosevelt Williamson III, MD Transcribed by Joann Mills Authenticated and [facility]
--- NOTE | 2024-02-26 12:57 | MM_ITS ---
PROCEDURE INFORMATION: Exam: Bilateral Screening 3D Mammography Exam date and time: 02/26/2024 1:14 PM Age: 53 years old Clinical indication: Screening examination TECHNIQUE: Imaging protocol: Bilateral Screening tomosynthesis and 2D mammography including computer-aided detection (CAD) when performed. COMPARISON: 1. DMSB DIGITAL MAMM-SCREEN BILATERAL 12/29/2010 9:48 AM 2. 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 Mass: None. Architectural distortion: None. Calcifications: No suspicious calcifications. Asymmetric density: None. Skin thickening: None. Axillary adenopathy: None. IMPRESSION: No mammographic evidence of malignancy. Annual screening is recommended unless otherwise clinically indicated. ASSESSMENT: BI-RADS Category 1: Negative
== END 2024-02-26 23:59 | disposition home or self-care (01) ==
LOC: RAD 12:50
PROVIDERS: PCP Nurse Practitioner Family; Visit Provider Nurse Practitioner Family
DX: Z87.891 Personal history of nicotine dependence (principal); Z12.31 Encounter for screening mammogram for malignant neoplasm of breast
CPT/HCPCS: 71271; 77063; 77067

== ENCOUNTER 2025-05-12 07:34 | Outpatient (CLI) | payer MEDICARE, SELFPAY ==
--- OUTSIDE RECORDS SUMMARY | 2025-05-12 07:37 | XMS_ITS | Clinical Summary ---
Author Organization [facility] Address [address] [place] [address] Care Team Providers Care Green Building Materials Distributor Name Role Phone Antoni Austin MD Primary Care Provider [phone] Allergies Active Allergy Reactions Criticality Noted Date Comments Hydrocodone-Acetaminophen Nausea Only High 1 Medications * This document contains information received from the source organization and may not represent a complete record from that organization. levothyroxine (SYNTHROID) 200 MCG tablet Take 200 mcg by mouth Daily. Active losartan (COZAAR) 50 MG tablet Take 50 mg by mouth Daily. 0 Active chlorhexidine (HIBICLENS) 4 % external liquid Shower each day with solution for 5 days beginning 5 days before surgery. 120 mL 0 Active lamoTRIgine (LaMICtal) 100 MG tablet Take 100 mg by mouth Daily. Active nicotine (NICODERM CQ) 14 MG/24HR patch Place 1 patch on the skin as directed by provider Daily. Active mupirocin (BACTROBAN) 2 % ointment Apply to the inside of each nostril with a cotton swab twice daily, morning and evening, for 5 days before surgery 22 g 10/31/2020 3:09 PM EST 1 Active oxyCODONE-acetam inophen (Percocet) 5-325 MG per tabletIndication s:Spinal cord compression Take 1 tablet by mouth Every 4 (Four) Hours As Needed for Severe Pain . 30 tablet 2020 12:49 PM EST 1 Active diazePAM (VALIUM) 5 MG tablet As Needed. 1 Active methocarbamol (ROBAXIN) 750 MG tablet Take 1 tablet by mouth 3 (Three) Times a Day As Needed for Muscle Spasms for up to 90 doses. 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 DDD (degenerative disc disease), lumbar 05/30/20 Acquired spondylolisthesis 05/30/2017 Low back pain 04/15/2017 Herniation of intervertebral disc between T8 and T9 07/09/2016 Neck pain 07/09/2016 Family History Medical History Relation Name Comments Lung cancer Father Relation Name Status Comments Father Social History Tobacco Use Types Packs/Day Years Used Date Smoking Tobacco: Former Cigarettes 0.5 15 1 09/2004 - 07/2020 Smokeless Tobacco: Never Alcohol Use Standard Drinks/Week Comments Yes 0 (1 standard drink = 0.6 oz pur e alcohol) OCCASIONALLY Abuse Screen Answer Date Recorded Unsafe at Home or Work/School Not on file Feels Threatened by Someone? Not on file 04/2023 Does Anyone Keep You from Co ntacting Others or Doint Things Outside the Home? Not on file 06/03/2023 Physical Sign of Abuse Present Not on file 1 Housing Stability Answer Date Recorded Current Living Arrangements Not on file 04/2023 Potentially Unsafe Housing Conditions Not on tommy e 06/03/2023 Family and Community Support Answer Mahin e Recorded Help with Day-to-Day Activities Not on file 06/03/2023 Lonely or Isolated Not on file 06/03/2023 Employment Answer Date Recorded Do you want help finding or keeping work or a dilcia b? Not on file 06/03/2023 Disabilities Answer Date Recorded Concentrating, Remembering, or Making Decisions Difficulty Not on file 06/03/2023 Doing Errands Independently Difficulty Not on fi le 06/03/2023 Education Answer Date Recorded Help with school or training? Not on file Preferred Language Not on file 06/03/2023 Comments No Sex and Gender Information Value Date Recorded Sex Assigned at Not on file Legal Sex Female 1:00 PM EDT Gender Identity Not on file Sexual Orientation Not on file Last Filed Vital Signs Vital Sign Reading Time Taken Comments Blood Pressure 140/92 01/09/2021 3:08 PM EDT Pulse 67 11/24/2020 11:42 AM EDT Temperature 36 C (96.8 F) 01/09/2021 3:08 PM EDT Respiratory Rate 18 2020 7:49 AM EST Oxygen Saturation 98% 11/24/2020 11:42 AM EDT Inhaled Oxygen Concentration - - Weight 91.6 kg (202 lb) 01/09/2021 3:08 PM EDT Height 165.1 cm (5' 5 ) 01/09/2021 3:08 PM EDT Body Mass Index 33.61 01/09/2021 3:08 PM EDT Plan of Treatment Health Maintenance Due Date Last Done Comments Annual Gynecologic Pelvic and Breast Exam 1969 TDAP/TD VACCINES (1 - Tdap) 1988 MAMMOGRAM 2009 COLOGUARD 2014 COLON CANCER SCREENING 5 YEAR SIGMOIDOSCOPY 2014 COLONOSCOPY [address]ER SCREENING [address] COLONOGRAPHY 2014 FECAL OCCULT BLOOD TEST 2014 FIT Testing (1 year) 2014 ANNUAL PHYSICAL 04/15/2017 HEPATITIS C SCREENING 04/15/2017 Pneumococcal Vaccine 50+ (1 of 1 - PCV) 11/04/2019 ZOSTER VACCINE (1 of 2) 11/04/2019 COVID-19 Vaccine (1 - season) 2025 INFLUENZA VACCINE 05/26/2025 Medical Devices Implanted Type Area Electrical Hardware Engineer Device Identifier Shelf Expiration Date Model / Serial / Lot Scrw Pine Apple Pillo Sd 14mm - [id number] Implanted:Qty : 6 on 11/02/2020 by Cosme Kevin MD at [facility] Implant N/A: Spine Cervical DEPUY SPINE [id number] / / 0 Kt Seal Hemos Abs Floseal Matrx Fast/Prep 10ml - [id number] Implanted:Qty : 1 on 11/02/2020 by Cosme Kevin MD at [facility] Implant N/A: Spine Cervical HYLA Mobile [id number] / / 0 Hemost Abs Surgifoam Sz100 8x12 10mm - [id number] Implanted:Qty : 1 on 11/02/2020 by Cosme Kevin MD at [facility] Implant N/A: Spine Cervical ETHICON DIV OF J AND J 1974 / / 0 Clip Ligat Vasc Horizon Ti Gallito 6ct - [id number] Implanted:Qty : 1 on 11/02/2020 by Cosme Kevin MD at [facility] Implant N/A: Spine Cervical TELEFLEX MEDICAL [id number] / / 0 Clip Ligat Vasc Horizon Ti Sm Yel 6ct - [id number] Implanted:Qty : 1 on 11/02/2020 by Cosme Kevin MD at [facility] Implant N/A: Spine Cervical TELEFLEX MEDICAL [id number] / / 0 Pin Compr 14mm - [id number] Implanted:Qty : 2 on 11/02/2020 by Cosme Kevin MD at [facility] Implant N/A: Spine Cervical DEPUY SPINE [id number] / / 0 Cage Bengal/Std 7d 5mm - [id number] Implanted:Qty : 1 on 11/02/2020 by Cosme Kevin MD at [facility] Implant N/A: Spine Cervical DEPUY SPINE [id number] / / 0 Cage Bengal/Std 7d 6mm - [id number] Implanted:Qty : 1 on 11/02/2020 by Cosme Kevin MD at [facility] Implant N/A: Spine Cervical DEPUY SPINE [id number] / / 0 Plt Pine Apple 2lvl 30mm - [id number] Implanted:Qty : 1 on 11/02/2020 by Cosme Kevin MD at [facility] Implant N/A: Spine Cervical DEPUY SPINE [id number] / / 0 Superion L3-L4,L4-L5 Insurance [place] [address] [place] [address] MEDICARE REPLACEMENT MEDICAID [place] Advance Directives * CPR (Attempt to Resuscitate) (Latest Code Status on File) Date Activated Date Inactivated Comments 11/02/2020 12:22 PM 2020 3:43 PM Question Answer Comments Code Status (Patient has no pulse and is not breathing): CPR (Attempt to Resuscitate) Medical Interventions (Patie nt has pulse or is breathing): Full Care Teams [employer] Distributor Relationship Specialty Start Date End Date Antoni Austin MD [address] [place] [address] PCP - General Family Medicine 07/09/16
[2025-05-12 07:55] LABS: Blood Urea Nitrogen 17 mg/dl (7-17); Creatinine,Serum 0.70 mg/dl (0.52-1.04); Estimated Glomerular Filt Rate 87 ml/min (>60); GFR (African American) 105 ML/MIN (>60)
--- NOTE | 2025-05-12 08:00 | FL_ITS ---
FINAL REPORT CLINICAL HISTORY: dyspagia 1.27 min DAP 6255 FINDINGS: ESOPHAGRAM HISTORY: Dysphagia Reference air kerma dose 62.55 mGy TECHNIQUE: Double contrast exam FINDINGS: The esophagus demonstrates a small hiatal hernia. There is moderate gastroesophageal reflux. No mucosal defects are seen. Motility appears normal. No changes of esophagitis are evident. A barium tablet readily passed into the stomach. IMPRESSION: Small hiatal hernia without obstructing lesion or mucosal abnormality Authenticated and [facility]
[2025-05-12] MEDS: IOPAMIDOL-370 (76%);100ML BOTTLE 75 ML IV (08:41)
[2025-05-12] MEDS: SODIUM CHLORIDE 0.9% 10ML SYR (RAD ONLY) 10 ML IV (08:41)
--- NOTE | 2025-05-12 08:45 | CT_ITS ---
FINAL REPORT TECHNIQUE: CT of the soft tissues of the neck was performed CLINICAL HISTORY: abnormal laryngoscopy COMPARISON: None FINDINGS: CT NECK WITH CONTRAST TECHNIQUE: Axial CT with IV contrast administration. Multiplanar reconstructions in the sagittal and coronal planes were subsequently performed. This study was performed with techniques to keep radiation doses as low as reasonably achievable, (ALARA). Individualized dose reduction techniques using automated exposure control or adjustment of mA and/or kV according to the patient's size were employed. FINDINGS: There is a cystic subcutaneous lesion in the premaxillary soft tissues measuring 13 mm in size, that may represent a sebaceous cyst. The parotid and submandibular glands are normal. There is asymmetric soft tissue fullness in the left piriform sinus with effacement of the piriform sinus, and a mucosal-based mass is not excluded. The vocal cords are symmetric. Thyroid gland is absent or severely atrophic. No adenopathy is noted. Surgical changes are noted in the cervical spine. IMPRESSION: 1. Asymmetry and soft tissue fullness effacing the left piriform sinus, supraglottic tumor not excluded. 2. No evidence of metastatic adenopathy. This study was performed using automated techniques to achieve radiation exposure as low as reasonably achievable Reviewed, Interpreted and Dictated by Jaison Fitzpatrick MD Transcribed by uLcia Coates Authenticated and [facility]
[2025-05-12] MEDS: BARIUM SULFATE (E-Z-HD 340GM);135ML BOTTLE 135 ML PO (08:51)
[2025-05-12] MEDS: BARIUM SULFATE(LIQUID E-Z-PAQUE);355ML BOTTLE 355 ML PO (08:51)
[2025-05-12] MEDS: E-Z-GASII EFFERVESCENT GRANULES;1PK 1 EACH PO (08:51)
== END 2025-05-12 23:59 | disposition home or self-care (01) ==
LOC: RAD 07:35
PROVIDERS: PCP Internal Medicine Adolescent Medicine; Visit Provider Nurse Practitioner
DX: K44.9 Diaphragmatic hernia without obstruction or gangrene (principal); R93.89 Abnormal findings on diagnostic imaging of other specified body structures; J38.3 Other diseases of vocal cords; E89.0 Postprocedural hypothyroidism
CPT/HCPCS: 36415; 70491; 74220; 82565; 84520; Q9967

== ENCOUNTER 2025-06-08 12:48 | Outpatient (CLI) | payer MEDICARE, SELFPAY ==
[2025-06-08 09:06] VITALS: BMI 33.6
--- OUTSIDE RECORDS SUMMARY | 2025-06-08 12:52 | XMS_ITS | Clinical Summary ---
Author Organization [facility] Address [address] [place] [address] Care Team Providers Care Blanking Machine Operator Name Role Phone Antoni Austin MD Primary Care Provider [phone] Allergies Active Allergy Reactions Criticality Noted Date [...] (09/09/2020): Added automatically from request for surgery [id number] Spinal cord compression 08/01/2020 Cervical myelopathy 05/19/2020 [...] 11/04/2019 ZOSTER VACCINE (1 of 2) 11/04/2019 INFLUENZA VACCINE 03/26/2025 Medical Devices Implanted Type Area Multicultural Manager Device Identifier Shelf Expiration Date Model / Serial / Lot Scrw Ava Pillo Sd 14mm - [id number] Implanted:Qty : 6 on 11/02/2020 by Cosme Kevin MD at [facility] Implant N/A: Spine Cervical DEPUY SPINE [id number] / / 0 Kt Seal Hemos Abs Floseal Matrx Fast/Prep 10ml - [id number] Implanted:Qty : 1 on 11/02/2020 by Cosme Kevin MD at [facility] Implant N/A: Spine Cervical Zuznow [id number] / / 0 Hemost Abs Surgifoam Sz100 8x12 10mm - [id number] Implanted:Qty : 1 on 11/02/2020 by Cosme Kevin MD at [facility] Implant N/A: Spine Cervical ETHICON DIV OF J AND J 1974 / / 0 Clip Ligat Vasc Horizon Ti Gallito 6ct - [id number] Implanted:Qty : 1 on 11/02/2020 by Cosme Kevin MD at [facility] Implant N/A: Spine Cervical TELEFLEX MEDICAL [id number] / / 0 Clip Ligat Vasc Horizon Ti Sm Yel 6ct - [id number] Implanted:Qty : 1 on 11/02/2020 by Cosme Kevin MD at [facility] Implant N/A: Spine Cervical TELEFLEX MEDICAL [id number] / / 0 Pin Compr 14mm - [id number] Implanted:Qty : 2 on 11/02/2020 by Cosme Kevin MD at [facility] Implant N/A: Spine Cervical DEPUY SPINE [id number] / / 0 Cage Bengal/Std 7d 5mm - [id number] Implanted:Qty : 1 on 11/02/2020 by Cosme Kevin MD at [facility] Implant N/A: Spine Cervical DEPUY SPINE [id number] / / 0 Cage Bengal/Std 7d 6mm - [id number] Implanted:Qty : 1 on 11/02/2020 by Cosme Kevin MD at [facility] Implant N/A: Spine Cervical DEPUY SPINE [id number] / / 0 Plt Ava 2lvl 30mm - [id number] Implanted:Qty : 1 on 11/02/2020 by Cosme Kevin MD at [facility] Implant N/A: Spine Cervical DEPUY SPINE [id number] / / 0 Superion L3-L4,L4-L5 Insurance MEDICAID QMB MEDICARE REPLACEMENT MEDICAID [place] Advance Directives * CPR (Attempt to Resuscitate) (Latest Code Status on File) Date Activated Date Inactivated Comments 11/02/2020 12:22 PM 2020 3:43 PM Question Answer Comments Code Status (Patient has no pulse and is not breathing): CPR (Attempt to Resuscitate) Medical Interventions (Patie nt has pulse or is breathing): Full Care Teams Blanking Machine Operator Relationship Specialty Start Date End Date Antoni Austin MD [address] [place] [address] PCP - General Family Medicine 07/09/16
--- NOTE | 2025-06-08 13:13 | ECG_ITS ---
APPROVED REPORT Exam: Resting ECG HR:60 bpm ECG Measurements Heart Rate 60 AXES NM 156 P 55 QRSd 96 QRS 43 QT 409 T 44 QTc 410 Conclusion SINUS RHYTHM NORMAL ECG UNCONFIRMED REPORT Electronically signed by : Mark Salvador MD 06/11/2025 22:00:37
[2025-06-08 13:35] LABS: Hematocrit 40.1 % (37.0-47.0); Hemoglobin 13.5 g/dL (12.2-16.2); Immature Granulocytes % 0.1 %; Mean Corpuscular HGB Conc 33.7 g/dL (31.8-35.4); Mean Corpuscular Hemoglobin 32.1 pg (27.0-31.2); Mean Corpuscular Volume 95.5 fl (81-99); Nucleated Red Blood Cells % 0 %; Platelet Count 277 K/mm3 (142-424); Red Blood Count 4.20 M/mm3 (4.20-5.40); Red Cell Distribution Width-SD 42.9 fL; White Blood Count 7.3 K/mm3 (4.8-10.8)
[2025-06-08 13:40] LABS: Chloride 102 mmol/L (98-107); Potassium 4.1 mmoL/L (3.5-5.1); Sodium 140 mmol/L (136-145)
[2025-06-08 13:43] LABS: Anion Gap 14.1 mEq/L (5-15); Blood Urea Nitrogen 17 mg/dl (7-17); Calcium 9.2 mg/dl (8.4-10.2); Carbon Dioxide 28 mmol/L (22.0-30.0); Creatinine Clearance Estimated 127 mL/min (50-200); Creatinine,Serum 0.70 mg/dl (0.52-1.04); Estimated Glomerular Filt Rate 87 ml/min (>60); GFR (African American) 105 ML/MIN (>60); Glucose 106 mg/dl (74-100)
== END 2025-06-08 23:59 | disposition home or self-care (01) ==
LOC: PREOP 12:49
PROVIDERS: Nurse Anesthetist, Certified Registered; PCP Nurse Practitioner Family; Visit Provider Otolaryngology
DX: Z01.810 Encounter for preprocedural cardiovascular examination (principal); Z01.812 Encounter for preprocedural laboratory examination
CPT/HCPCS: 80048; 85025; 93005

== ENCOUNTER 2025-06-16 10:19 | Day surgery (SDC) | payer MEDICARE, SELFPAY ==
[2025-06-08 13:57] VITALS: BMI 33.6
[2025-06-16] VITALS (10 sets, daily range): BP systolic 116–146; BP diastolic 61–90; PULSE 67–108; RESP 14–18; TEMP 36.1–36.6; O2SAT 93–98; BMI 33.6
--- NOTE | 2025-06-16 12:12 | P.PNANES_ITS ---
[facility] Disclaimer: The information contained in this section may have been updated after the patient was seen, as this information can be updated by other users. Medical History Eustachian tube dysfunction Fluid level behind tympanic membrane of both ears Fluid level behind tympanic membrane of right ear Vocal cord dysfunction Globus sensation Dysphagia History of head and neck cancer High cholesterol Daytime somnolence Restless sleeper Snoring Tobacco dependence syndrome Acid reflux HTN (hypertension) Abnormal EKG Dyspnea Surgical History History of neck surgery History of hysterectomy History of thyroidectomy History of tonsillectomy and adenoidectomy History of back surgery Family History Other Family history of cancer Family history of diabetes mellitus Family history of heart disease Social History Smoking Status: Former smoker tobacco type: cigarettes packs per day: 1 pack- years: 25 smoking status start date: december alcohol intake: current alcohol intake frequency: holidays/special occasions only substance use type: marijuana and other details: occasionally on special occasions current occupational status: disabled and other Travel in the last 8 weeks?: None household members: family and other housing: house number of children: 2 current occupational exposures/hazards: No caffeine: Yes Have you lived/traveled outside US in past 30 days?: No Contact w/someone who lives/traveled outside US past 30 days?: No Exposure to someone with infectious disease in past 14 days?: No Do you have a fever (greater than 100.4 F or 38 C)?: No Have you tested positive for COVID-19?: No Exposed to someone with COVID-19 in past 14 days?: No Do you have a sore throat?: No Do you have a cough?: No Do you have any weakness?: No Are you experiencing any nausea/vomitting?: No Do you have any diarrhea?: No Are you experiencing any unusual bleeding?: No Do you have any muscle aches/pain?: No Do you have any abdominal pain?: No Are you experiencing loss of taste or smell?: No [facility] Anesthesia Checklist Patient Identification Patient Identification: Arm Band and Verbal (Name & ) Structural Data Admitted From: Home Planned Operative Procedure/s: direct laryngoscopy Consent for Planned Operative Procedure(s) Verified: Yes Verified Documents: Surgical Consent and History and Physical NPO Status Verified Time NPO: 00:00 Additional verifications Anesthesia Reactions: No Hx Blood Transfusions: No Blood Transfusion Reaction: No Airway Assessment Dentition: Good Dentition Neurological Assessment Level of Consciousness: Awake, Alert and Appropriate Hx Seizures: No Numbness or tingling in extremities: No Anesthesia Plan Anesthesia Risk discussed: Yes Anesthesia Plan: Verified ASA Class: II Anesthesia Type: General
--- NOTE | 2025-06-16 13:54 | EXP.OP.NOTE ---
Date of procedure: 06/16/25 Pre-op Diagnosis:: Laryngeal mass Post-op Diagnosis:: Laryngeal mass Procedure performed:: Direct laryngoscopy under anesthesia Surgeon:: Hieu Skinner MD Anesthesia: GETDario Estimated blood loss (mL): 0 Clinical Note:: She is a longtime smoker and recent CT scan showed asymmetry in the left piriform sinus area and although her fiberoptic laryngoscopy as an outpatient was unremarkable, direct laryngoscopy under anesthesia was recommended and informed consent obtained Operative findings:: Base of tongue, vallecula, epiglottis, aryepiglottic folds, arytenoids, postcricoid area, piriform sinuses, false cords, and true cords were all normal Operative note:: The patient was brought to the operating room and after adequate general anesthesia the mouth was draped in the usual sterile fashion and the upper teeth protected with a plastic guard. Anterior commissure laryngoscope was then employed to perform rigid direct laryngoscopy. This was done atraumatically and findings were as noted above. The laryngoscope and tooth guard were removed and the procedure concluded. All counts correct and blood loss 0 Condition: stable Disposition: PACU Complications:: No complications
--- NOTE | 2025-06-16 13:57 | EXP.ANES.I ---
[facility] Anesthesia Record Part I Anesthesia Record I Intake, IV Amount: 300 Hydration: Adequate Estimated blood loss (mL): 0 Urine output (mL): 0 Blood Products used (#): none Blood Pressure: 146/90 SaO2: 94 Pulse Rate: 108 Airway Patency: Patent Respiratory Rate: 14 Temperature: 97.8 F Patient is:: Drowsy and Stable Stable to PACU at:: 13:52
--- NOTE | 2025-06-16 15:10 | P.PNANES_ITS ---
[facility] Anesthesia Record Part II Anesthesia Record Part II Discharge Time: 14:24 Destination: [facility] Day [facility] (OP Surgery) PACU nurse assessment reviewed?: Yes Patient Condition:: Good Anesthesia Complications:: None Swallowing reflex intact?: Yes Airway Patency: Patent Cyanosis?: No Blood Pressure: 135/76 SaO2: 94 Respiratory Rate: 16 Pulse Rate: 82 Temperature: 97.9 F Mental Status: Alert & Oriented Pain level:: 0 Nausea and/or vomitting:: None Intake, IV Amount: 0 Hydration: Adequate
== END 2025-06-16 14:56 | disposition home or self-care (01) ==
PROVIDERS: PCP Nurse Practitioner Family; Visit Provider Otolaryngology
PROC: 0CBS8ZX Excision of Larynx, Via Natural or Artificial Opening Endoscopic, Diagnostic (ICD-10-PCS; principal; 2025-06-16 12:15)
DX: J38.7 Other diseases of larynx (principal); E78.00 Pure hypercholesterolemia, unspecified; I10 Essential (primary) hypertension; Z87.891 Personal history of nicotine dependence; Z85.89 Personal history of malignant neoplasm of other organs and systems; Z79.899 Other long term (current) drug therapy
CPT/HCPCS: 31525; J1100; J2003; J2250; J2405; J2704; J3010